=== PATIENT | male | born 2000 | race African-American/Black ===

== ENCOUNTER 2025-02-05 12:03 | Emergency (ER) | payer SELFPAY ==
[~2025-02-05] VITALS: Ht 160 cm; Wt 84.8 kg
[2025-02-05 14:36] VITALS: PULSE 80; RESP 16; TEMP 97.7; O2SAT 99
[2025-02-05] MEDS: KETOROLAC TROMETHAMINE 30 MG/ML VIAL IV STA (15:43)
== END 2025-02-05 14:36 | disposition home or self-care (01) ==
LOC: FSED 12:06
DX: M25.472 Effusion, left ankle (principal); M25.471 Effusion, right ankle; M25.572 Pain in left ankle and joints of left foot; M25.571 Pain in right ankle and joints of right foot
CPT/HCPCS: 80053; 83880; 84484; 85025; 96374; 99283; J1885